=== PATIENT | male | born 1975 | race Two or more races ===

== ENCOUNTER 2019-01-23 16:04 | Emergency (ER) | payer MEDICAID ==
[~2019-01-23] VITALS: Ht 172.7 cm; Wt 90.7 kg
[2019-01-23] MEDS ORDERED: IBUP-1957 PO (16:32)
[2019-01-23] MEDS ORDERED: DEXAMETHASONE 1 MG TABLET ONE (16:55)
[2019-01-23] MEDS ORDERED: MORPHINE SULFATE 4 MG/1 ML DISP.SYRIN ONE (16:56)
[2019-01-23] MEDS ORDERED: DEXAMETHASONE 4 MG TABLET ONE (16:56)
[2019-01-23] MEDS ORDERED: DEXAMETHASONE 4 MG TABLET PO ONE (17:00)
[2019-01-23] MEDS ORDERED: MORPHINE SULFATE 4 MG/1 ML DISP.SYRIN SQ ONE (17:00)
--- NOTE | 2019-01-23 17:20 | NUR ---
Patient is resting comfortably on gurney, no moaning or gasping seen. Comfort & safety measures maintained.
--- NOTE | 2019-01-23 17:34 | NUR ---
Patient expressed marked decreased back pains, MD is aware. Patient voided in the bathroom using his own crutches. Portable U/S machine is at bedside per MD's order.
--- NOTE | 2019-01-23 17:38 | NUR ---
Patient discharged to home in stable conditon to patient. Written and verbal after care instructions given to patient and family. Patient & family verbalized understanding & compliance of instructions.
== END 2019-01-23 17:38 | disposition home or self-care (01) ==
LOC: ER 16:06
DX: M54.17 Radiculopathy, lumbosacral region (principal); Z79.1 Long term (current) use of non-steroidal anti-inflammatories (NSAID)
CPT/HCPCS: 96372; 99284; J2270; J8540 ×2; A4663